=== PATIENT | female | born 1995 | race Caucasian/White ===

== ENCOUNTER → 2017-07-10 | Outpatient (CLI) | payer OTHER ==
--- NOTE | 2017-07-10 11:36 | RAD ---
Right upper quadrant abdominal ultrasound, 07/10/2017: History: Acute epigastric pain The gallbladder is within normal limits in size. Its wall is at the upper limits of normal in thickness measuring 3-4 mm. No gallstones are evident. The common hepatic duct is of normal caliber. The hepatic echogenicity is mildly increased in a diffuse pattern. This is most commonly due to fatty change. No hepatic mass is evident. The pancreatic body is unremarkable. Other portions of the pancreas were obscured by overlying bowel. The visualized portions of the right kidney are unremarkable. IMPRESSION: 1. Increased hepatic echogenicity suggesting fatty change. 2. Borderline gallbladder wall thickening without evidence of cholelithiasis.
== END | disposition home or self-care (01) ==
LOC: US 10:28
PROVIDERS: ATTEND Preventive Medicine Occupational Medicine
DX: R10.13 Epigastric pain (principal)
CPT/HCPCS: 76705